=== PATIENT | female | born 1985 | race Caucasian/White ===

== ENCOUNTER 2019-05-15 08:50 | Day surgery (SDC) | payer BC ==
[~2019-05-15] VITALS: Ht 170.2 cm; Wt 106.1 kg
[~2019-05-15 08:50] MED LIST: AZITHROMYCIN250 MG PO; CEFTIN250 MG PO; MEDROL4 M1 PO; MUCINEX COLD L118 ML PO; SINGULAIR10 MG PO; VENTOLIN HFA18 GM IH; WELLBUTRIN XL150 MG PO
--- NOTE | 2019-05-15 13:05 | NUR ---
05/15/19 1305 Nevaeh Flores 1257-PATIENT ARRIVED TO PACU ON 6L MASK REACTIVE TO VOICE OPENING EYES DENIES PAIN OR NAUSEA. SR. INCISION TO NECK CDI. 1304-PATIENT AWAKE DROWSY DENIES PAIN OR NAUSEA. PLACED ON RA. RR EVEN.
--- NOTE | 2019-05-16 08:01 | OR ---
[facility] [address] [place], [place] [address] Signed DATE OF OPERATION: 05/15/2019 SURGEON: Cristiano Juárez MD PREOPERATIVE DIAGNOSIS: Left posterior cervical subcutaneous mass (2-2.5 cm). POSTOPERATIVE DIAGNOSIS: Left posterior cervical subcutaneous mass (2-2.5 cm). PROCEDURE: Excision of left posterior cervical subcutaneous mass. ESTIMATED BLOOD LOSS: Minimal. 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 She thinks it started out small and has become progressively larger. She tried to squeeze it more than once. She said it is quite painful and burning. When she tries to sleep, it is even worse. She said she cannot sleep on her back. Now, it is starting to affect her sleep patterns and her ability of concentrating work during the day. To her knowledge, it has never been infected. She had been to her primary care provider. She was asked to see me as a local general surgeon. I met with Elizabeth and her fiance in the office. We discussed the concept of this subcutaneous lesion. Most commonly, these are epidermal and/or sebaceous cysts. They are notoriously inflamed and very difficult to remove from the neck. They frequently bleed and take significant cautery to remove them. Consequently, we decided to do this over in operating room with monitored anesthesia care and local anesthetic. I had reviewed this with Elizabeth and her fiance in detail. She understands expected intraop and postop course. There is risk to the surgery including, but not limited to bleeding, infection, scarring, change in contour of the skin as well as possible need for additional surgery based on pathology results and/or recurrent cyst in the same or other locations. She had expressed understanding and wished to proceed. PROCEDURE NOTE: I met with Elizabeth and her in our preop area. She was able to easily show us the lesion and we marked it appropriately. After this, Elizabeth was taken in the operating room and placed in the right lateral decubitus position. She was given monitored anesthesia care by our anesthesia provider. She was given preoperative antibiotics Electronically Signed By: CRISTIANO JUÁREZ MD 05/16/19 0801 PATIENT NAME: ELIZABETH LOZOYA S OPERATIVE REPORT DATE OF : 81 REPORT #: [id number] PHYSICIAN: CRISTIANO JUÁREZ MD PCP: MELO MAJOR MD REPORT IS CONFIDENTIAL AND NOT TO BE RELEASED WITHOUT AUTHORIZATION [facility] [address] [place], [place] [address] Signed along with subcutaneous heparin. SCDs were utilized. Appropriate padding and monitoring were in place. She was then prepped and draped in the usual sterile fashion. Local anesthetic was copiously injected in and around and underneath the lesion. A standard transverse incision was made over the lesion and carried down and around the lesion very carefully with the help of our cautery. It required the small skin hooks to help hold the skin edges back. She had significant amount of slimy granulation tissue associated with what appears to be a chronic cyst. As always, the surrounding tissues quite indurated and very difficult to contour even with cautery. Also quite commonly, they traveled from the skin all the way down to the muscle. After a few minutes, we had it completely removed. We have taken several pictures during the procedure at her request for photodocumentation. The wound was then irrigated and suctioned out until clear. We closed the skin and dermis with interrupted 3-0 subcuticular Monocryl sutures. The skin edges were reapproximated with a running 6-0 fast absorbing plain gut suture. Dry gauze and tape were then applied. Elizabeth was then transferred over to her hospital bed and taken into recovery room in stable condition. Cristiano Juárez MD ALB/MODL /[id number] cc: MD Cristiano Graham MD Copies: MELO MAJOR MD, ANDREW L MD ~ Electronically Signed By: CRISTIANO JUÁREZ MD 05/16/19 0801 PATIENT NAME: ELIZABETH LOZOYA OPERATIVE REPORT DATE OF : 81 REPORT #: [id number] PHYSICIAN: CRISTIANO JUÁREZ MD PCP: MELO MAJOR MD REPORT IS CONFIDENTIAL AND NOT TO BE RELEASED WITHOUT AUTHORIZATION
--- NOTE | 2019-05-17 15:08 | PATH ---
[facility] [address] [place], [place] [address] Signed SPECIMEN(S): A LEFT POSTERIOR NECK SPECIMEN SOURCE: A. LEFT POSTERIOR NECK CLINICAL HISTORY: Painful lump posterior neck. FINAL PATHOLOGIC DIAGNOSIS: Subcutaneous tissue, left posterior neck, excision: - Epidermal cyst, keratinous type, ruptured, with fibrosis and granulation tissue. LJA:cml:C2NR MICROSCOPIC EXAMINATION: Sections reveal portions of fibroadipose tissue with areas of granulation tissue. No epithelial elements are originally identified. Additional sections are submitted. LJA:cml GROSS DESCRIPTION: The specimen, labeled "AC, left posterior neck," is received in formalin and consists of a 3.0 x 1.7 x 1.2 cm baldwin-yellow and lobulated disrupted cyst. The cyst is void of contents and the inner lining is baldwin-brown to yellow and roughened. Window Maker sections are submitted in cassette (A1). Per request of Dr. Hodgson, the remainder of the specimen is submitted in cassettes (A2-A3). AM (under the direct supervision of a pathologist) The Gross Description was prepared using a voice recognition system. The report was reviewed for accuracy; however, sound-alike word errors, addition and/or deletions may occur. If there is any question about this report, please contact Client Services. PERFORMING LABORATORY: The technical component was performed by [facility], [address] [place] [id number] (Administrative Office Assistant: Margarita Novak MD; CLIA# [id number]).[facility] [address] [address] (Administrative Office Assistant: Dio Hodgson MD; CLIA# [id number]). PATIENT NAME: ELIZABETH LOZOYA PATHOLOGY DATE OF : 81 REPORT #: [id number] PHYSICIAN: [facility] PCP: MELO MAJOR MD REPORT IS CONFIDENTIAL AND NOT TO BE RELEASED WITHOUT AUTHORIZATION [address] [place], [place] [address] Signed Diagnostician: Dio Hodgson MD Pathologist Electronically Signed 05/17/2019 Copies: ~ PATIENT NAME: ELIZABETH LOZOYA PATHOLOGY DATE OF : 81 REPORT #: [id number] PHYSICIAN: [facility] PCP: MELO MAJOR MD REPORT IS CONFIDENTIAL AND NOT TO BE RELEASED WITHOUT AUTHORIZATION
== END 2019-05-15 13:40 | disposition home or self-care (01) ==
LOC: OPS 08:50 → DS 08:50
PROVIDERS: Colon & Rectal Surgery
PROC: 0HB4XZZ Excision of Neck Skin, External Approach (ICD-10-PCS; principal; 2019-05-15 11:15)
DX: L72.0 Epidermal cyst (principal); J45.909 Unspecified asthma, uncomplicated; F41.9 Anxiety disorder, unspecified; F17.210 Nicotine dependence, cigarettes, uncomplicated; E66.9 Obesity, unspecified; Z79.899 Other long term (current) drug therapy; Z68.36 Body mass index [BMI] 36.0-36.9, adult
CPT/HCPCS: 00300; J0690; J1100; J1644; J2250; J2405; J2704; J3010; J7120

== ENCOUNTER 2025-01-22 12:51 | Emergency (ER) | payer BC ==
[~2025-01-22] VITALS: Ht 170.2 cm; Wt 102.0 kg
[~2025-01-22 12:51] MED LIST changes: +IPRAT-ALBUT 0.5-3 ML INH; +PREDNISONE20 MG PO; +TAMIFLU75 MG PO; +ZITHROMAX250 MG PO
[2025-01-22] MEDS ORDERED: DEXTROAMP-AMPHE30 MG PO (13:27)
[2025-01-22] MEDS ORDERED: TOPIRAMATE25 MG PO (13:28)
[2025-01-22 13:42] LABS: BASOPHILS 0.3 % (0.1-1.2); EOSINOPHILS 2.6 % (0.7-5.8); HEMATOCRIT 38.5 % (34.1-44.9); HEMOGLOBIN 12.6 g/dL (11.2-15.7); LYMPHOCYTES 20.8 % (19.3-51.7); MCH 26.3 PG (25.6-32.2); MCHC 32.7 g/dL (32.2-35.5); MCV 80.4 fL (79.4-94.8); MONOCYTES 5.4 % (4.7-12.5); NEUTROPHILS 70.4 % (34.0-71.1); PLATELET COUNT 376 K/uL (182-369); RBC 4.79 M/uL (3.93-5.22)
[2025-01-22 14:00] LABS: ALBUMIN 3.8 g/dL (3.4-5.0); ALBUMIN/GLOBULIN RATIO 0.84 (1.1-2.4); ANION GAP 14.9 (7-21); BILIRUBIN, TOTAL 0.6 mg/dL (0.2-1.0); BUN/CREATININE RATIO 15.3 (6.0-28.6); CALCIUM 9.3 mg/dL (8.5-10.1); CREATININE, SERUM 0.98 mg/dL (0.55-1.02); POTASSIUM 3.9 mmol/L (3.5-5.1); PROTEIN, TOTAL 8.3 g/dL (6.4-8.2)
[2025-01-22] MEDS ORDERED: HYDROmorphone HCL 1 MG/ML SYR IV ONE (14:00)
[2025-01-22] MEDS ORDERED: ondansetron HCL 4 MG/2 ML VIAL IV ONE (14:00)
[2025-01-22] MEDS ORDERED: SODIUM CHLORIDE 0.9% 1,000 ML IV PRN (14:00)
[2025-01-22 15:38] LABS: BILIRUBIN, URINE NEGATIVE (negative); BLOOD/HGB, URINE NEGATIVE (Negative); KETONE, URINE >=80 (Negative); LEUK ESTERASE, URINE NEGATIVE (negative); NITRITE, URINE NEGATIVE (negative)
[2025-01-22 16:31] VITALS: BP 120/84
== END 2025-01-22 16:33 | disposition home or self-care (01) ==
LOC: ED 12:51
PROVIDERS: Emergency Medicine
DX: R19.7 Diarrhea, unspecified (principal); R10.84 Generalized abdominal pain; J45.909 Unspecified asthma, uncomplicated; F17.200 Nicotine dependence, unspecified, uncomplicated; Z79.899 Other long term (current) drug therapy; Z91.030 Bee allergy status
CPT/HCPCS: 36415; 74177; 80053; 81003; 83690; 84703; 85025; 96375; 99284-25; J1171; J2405; J7030; Q9967